=== PATIENT | male | born 1965 | race Caucasian/White ===

== ENCOUNTER 2019-03-06 14:44 | Emergency (ER) | payer BC ==
[2019-03-06] MEDS ORDERED: Ketorolac Tromethamine 30 MG/ML VIAL ONE (14:57)
--- NOTE | 2019-03-06 16:15 | RAD ---
Exam: Left hand 3 views: HISTORY: Injury Minimally comminuted fractures involving the base of the second metacarpal. The patient's ring overli es the proximal phalanx of the fourth finger. Deformity of the distal tuft of the distal phalanx of the middle finger which appears old. IMPRESSION: Comminuted fracture without significant displacement involving the base of the second metacarpal.
--- NOTE | 2019-03-06 16:16 | RAD ---
Exam: Left wrist 3 views: HISTORY: Injury FINDINGS: Essentially nondisplaced comminuted fractures of the base of the second metacarpal. The remainder of the wrist appears intact. IMPRESSION: Essentially nondisplaced comminuted fractures involving the base of the second metacarpal.
== END 2019-03-06 16:45 | disposition home or self-care (01) ==
LOC: NAV ERS 14:44
DX: S62.341A Nondisplaced fracture of base of second metacarpal bone, left hand, initial encounter for closed fracture (principal); I10 Essential (primary) hypertension; J45.909 Unspecified asthma, uncomplicated; F17.210 Nicotine dependence, cigarettes, uncomplicated; Z79.899 Other long term (current) drug therapy; V22.4XXA Motorcycle driver injured in collision with two- or three-wheeled motor vehicle in traffic accident, initial encounter
CPT/HCPCS: 29125; 96374; G0390; J1885